=== PATIENT | male | born 1990 ===

== ENCOUNTER 2020-11-13 22:10 | Inpatient (IN) | payer SELFPAY ==
[~2020-11-13] VITALS: Ht 182.9 cm; Wt 93.4 kg
--- NOTE | 2020-11-13 22:12 | NUR ---
THIS IS A 30M BIB EMS FROM [facility] FOR GI BLEED, PT REPORTS VOMITING LARGE AMOUNTS OF SHAWN BLOOD PRIOR TO SEEKING TX. 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 PT CONNECTED TO ALL MONITORING VSS, NADN, PT CALM COOPERATIVE UPON ARRIVAL.
[2020-11-13] MEDS ORDERED: PANTOPRAZOLE 80 MG in SODIUM CHLORIDE 0.9% 100 ML IV SCH (23:00)
[2020-11-13] MEDS ORDERED: SODIUM CHLORIDE 0.9% 1,000 ML IV ONE (23:00)
[2020-11-13] MEDS ORDERED: ONDANSETRON 2MG/ML, 2ML IVPush ONE (23:00)
[2020-11-13] MEDS ORDERED: SODIUM CHLORIDE FLUSH 10ML SYR IVF ONE (23:00)
[2020-11-13] MEDS ORDERED: MORPHINE SULFATE 4 MG/ML, 1ML IVPush PRN (23:00)
[2020-11-13 23:28] LABS: BASOPHILS % (AUTO) 0 % (0-1); EOSINOPHILS % (AUTO) 0 % (1-7); LYMPHOCYTES % (AUTO) 20 % (22-44); MEAN CORPUSCULAR HEMOGLOBIN 29.2 pg (27.5-34.5); MEAN CORPUSCULAR HGB CONC 35.1 g/dL (33.2-36.2); MEAN PLATELET VOLUME 7.7 fL (7.4-10.4); MONOCYTES % (AUTO) 14 % (2-9); NEUTROPHILS % (AUTO) 66 % (42-75); PLATELET COUNT 237 x10^3/uL (130-400); RED BLOOD COUNT 5.14 x10^6/uL (4.38-5.82); RED CELL DISTRIBUTION WIDTH 12.9 % (9.4-14.8)
[2020-11-13 23:33] LABS: ALANINE AMINOTRANSFERASE 24 U/L (12-78); ALBUMIN 3.4 g/dL (3.4-5.0); ANION GAP 6 mmol/L (5-15); CALCIUM 8.1 mg/dL (8.5-10.1); CHLORIDE 107 mmol/L (98-107); CREATININE 1.16 mg/dL (0.7-1.3)
[2020-11-13 23:34] LABS: INTERNATIONAL NORMALIZED RATIO 1.06 (0.93-1.1); PROTHROMBIN TIME 11.3 Seconds (9.6-11.5)
[2020-11-13 23:36] LABS: ALKALINE PHOSPHATASE 68 U/L (45-117); BILIRUBIN,TOTAL 0.4 mg/dL (0.2-1.0); TOTAL PROTEIN 7.8 g/dL (6.4-8.2)
[2020-11-13] MEDS ORDERED: ONDANSETRON 2MG/ML, 2ML ONE (23:49)
--- NOTE | 2020-11-13 23:55 | NUR ---
PT MEDICATED PER MAR FOR NAUSEA
[2020-11-14] MEDS ORDERED: SODIUM CHLORIDE 0.9% 1,000 ML IV SCH (01:00)
[2020-11-14] MEDS: PANTOPRAZOLE 80 MG in SODIUM CHLORIDE 0.9% 100 ML IV SCH ×2 (01:00→09:53)
[2020-11-14] MEDS ORDERED: ONDANSETRON 2MG/ML, 2ML IVPush PRN (01:00)
--- NOTE | 2020-11-14 01:04 | NUR ---
REPORT TO ANTHONY MURPHY PT READY FOR TRANSFER TO ROOM.
[2020-11-14 01:29] VITALS: BP 133/87
[2020-11-14] MEDS: SUCRALFATE 1 GM/10 ML UDC PO SCH ×3 (01:52→11:06)
[2020-11-14 05:51] LABS: BASOPHILS % (AUTO) 0 % (0-1); EOSINOPHILS % (AUTO) 0 % (1-7); LYMPHOCYTES % (AUTO) 35 % (22-44); MEAN CORPUSCULAR HEMOGLOBIN 28.8 pg (27.5-34.5); MEAN CORPUSCULAR HGB CONC 34.4 g/dL (33.2-36.2); MONOCYTES % (AUTO) 15 % (2-9); NEUTROPHILS % (AUTO) 50 % (42-75); RED BLOOD COUNT 5.44 x10^6/uL (4.38-5.82); RED CELL DISTRIBUTION WIDTH 13.2 % (9.4-14.8)
[2020-11-14 06:01] LABS: ANION GAP 5 mmol/L (5-15); CALCIUM 8.4 mg/dL (8.5-10.1); CHLORIDE 107 mmol/L (98-107)
[2020-11-14 06:02] LABS: CREATININE 1.15 mg/dL (0.7-1.3)
[2020-11-14 06:42] LABS: PLATELET COUNT 186 x10^3/uL (130-400)
[2020-11-14 07:38] VITALS: BP 121/85
[2020-11-14] MEDS ORDERED: OMEP-110 PO (10:11)
[2020-11-14] MEDS ORDERED: SUCR1TAB33 PO (10:11)
== END 2020-11-14 12:21 | disposition home or self-care (01) | DRG 379 ==
LOC: ED 11-14 00:55 → EDIP 11-14 00:56 → 3N 11-14 01:20
PROVIDERS: ADMIT Family Medicine; ATTEND Hospitalist
DX: K92.2 Gastrointestinal hemorrhage, unspecified (principal); F12.90 Cannabis use, unspecified, uncomplicated; Z72.89 Other problems related to lifestyle
CPT/HCPCS: 36415; 80048; 80053; 85014; 85018; 85025; 85610; 85730; 86850; 86900; 96374; G0378; J2405; C9113; J7030